=== PATIENT | female | born 1970 | race Caucasian/White ===

== ENCOUNTER 2019-10-23 19:06 | Emergency (ER) | payer SELFPAY ==
[2019-10-23 19:39] VITALS: BP 170/102; PULSE 85; RESP 18; TEMP 36.8; O2SAT 97; BMI 33.9
--- NOTE | 2019-10-23 20:08 | ED_ITS ---
HPI - Extremity Problem General: Chief complaint: Extremity Injury, Upper Stated complaint: wrist pain Time Seen by Provider: 10/23/19 20:01 History of Present Illness: HPI Narrative: Patient is a 48-year-old female comes to the ED with right wrist pain. Patient says that yesterday she fell and caught herself with her right arm. She did not feel any pop and had some mild pain in her right wrist afterwards last night. Says this morning when she woke up the pain had increased and she still has range of motion but increased pain with movement. She has some mild swelling in the wrist and the pain is starting to shoot into the forearm. She has not taken any ibuprofen or Tylenol today to help with pain. Associated symptoms: Deny chest pain, fever(s) or rash Review of Systems Const: Denies: fever(s), chills or fatigue Eyes: Denies: change in vision or eye discomfort ENMT: Denies: throat pain, odynophagia, nasal discharge or nasal congestion Card: Denies: chest pain, palpitations, edema, swelling of feet/ankles, dyspnea on exertion or orthopnea Resp: Denies: dyspnea, productive cough or non-productive cough GI: Denies: abdominal pain, nausea, vomiting, diarrhea, constipation or hematochezia : Denies: flank pain, dysuria or hematuria Musc: Reports: extremity pain (right wrist pain) and extremity swelling (right wrist swelling); Denies: neck pain or back pain Skin/Breast: Denies: rash or new lesions Neuro: Denies: headache(s), numbness in extremities or weakness in extremities PFS ED PFSH: Social History Smoking and tobacco status: current every day smoker Physical Exam Const: COMMON NORMALS: no acute distress, patient oriented x3 and alert GENERAL APPEARANCE: cooperative and comfortable HENMT: COMMON NORMALS: normocephalic HEAD & SCALP: normocephalic MOUTH: Normal oral and palatal mucosa present THROAT: posterior oropharynx normal and uvula midline Eye: COMMON NORMALS: Equal, round and reactive pupils present PUPIL: Yes Equal, round and reactive pupils present Neck/C-Spine: COMMON NORMALS: supple GENERAL: Yes normal visual inspection Resp: COMMON NORMALS: normal respiratory effort, No retractions, No use of accessory muscles and clear to auscultation bilaterally AUSCULTATION: clear to auscultation bilaterally Cardio: COMMON NORMALS: regular rate, regular rhythm, S1 normal heart sound present, S2 normal heart sound present, No gallops present (Cardio), No clicks present (Cardio), No murmurs present (Cardio) and Peripheral pulses 2+ throughout RATE: regular rate RHYTHM: regular rhythm HEART SOUNDS: S1 normal heart sound present and S2 normal heart sound present PERIPHERAL PULSES: Peripheral pulses 2+ throughout GI: COMMON NORMALS: Normal to inspection, nondistended, normoactive bowel sounds present, Soft to palpation, non-tender and no masses PALPATION: Yes Soft to palpation : COMMON NORMALS: Yes no CVA tenderness BLADDER/KIDNEY EXAM: Yes no CVA tenderness Back/Pelvis: COMMON NORMALS: no CVA tenderness Extremity: GENERAL: Yes normal exam except as noted RIGHT UPPER EXTREMITY: Yes wrist Right wrist: Yes inspection (Mild swelling, no visible deformity, erythema or warmth.), Yes palpation (Tender on lateral aspect of wrist.), Yes ROM (Full range of motion but mild pain.) and Yes neurovascular exam (Intact) Neuro: COMMON NORMALS: patient oriented x3 and moves all extremities SENSORIUM/ORIENTATION: Yes alert Skin: COMMON NORMALS: no rashes or lesions noted GENERAL SKIN EXAM: no rashes or lesions noted and dry skin Course Vital Signs: Vital signs: Vital Signs Temperature 98.2 F 10/23/19 19:39 Pulse Rate 72 10/23/19 22:17 Respiratory Rate 18 10/23/19 22:17 Blood Pressure 135/74 10/23/19 22:17 Pulse Oximetry 98 10/23/19 22:17 MDM - Extremity (Nontraumatic) MDM Narrative: Medical decision making narrative: Patient is a 48-year-old female comes to the ED with right wrist pain after fall yesterday. Right wrist x-ray showed no acute fractures. Patient was put in a Velcro wrist splint and diagnosed with wrist sprain and strain. Patient was told to follow-up with PCP in 7 to 10 days reevaluation. Take ibuprofen or Tylenol for pain and apply cold pack to help with symptoms. Patient understood and agreed with plan. Imaging Data^: Xray Ortho: Attestation: I personally reviewed and interpreted this imaging study as follows: My impression: Right wrist x-ray performed?no acute fractures seen. Pending final radiology report. Discharge Plan Discharge Patient Disposition: Home, Self-Care Clinical Impression: Sprain and strain of wrist Condition: Stable Discharge Orders: Discharge Order (Routine); Ordered 10/23/19 Ordered By: Benjamin Kent Referrals: Tomi Kevin APN [Primary Care Provider] - Discharge Diet: Regular Discharge Activity: Increase activity as tolerated Patient Instructions: Wrist Sprain (ED) Activity Restrictions/Additional Instructions: Wear Velcro wrist splint for the next couple days to allow for the wrist to heal and swelling to go down. Remove wrist splint daily and move wrist around to keep wrist range of motion normal. Take ibuprofen to help with pain and inflammation. You can take up to 600 mg 3 times a day of ibuprofen. Apply cold pack on wrist to help with swelling symptoms to. Call your PCP and set up a follow-up appointment with them in the next 7 to 10 days. Discharge Date/Time: 10/23/19 22:19 Coding Level of Care Code ED [employer] for Tapan Fwchristiane Exam Comprehensive
--- NOTE | 2019-10-23 20:37 | XR_ITS ---
WS: [id number] Right wrist, 3 views, 10/23/2019 Clinical Data: fall with wrist pain Comparison: None. Findings: No fractures or dislocations are seen. The carpal bones are intact. There is no soft tissue swelling. The distal radius and ulna are not remarkable. XR/XR wrist RT min 3V* [id number] Impression: Negative right wrist.
[2019-10-23 22:17] VITALS: BP 135/74; PULSE 72; RESP 18; O2SAT 98
== END 2019-10-23 22:19 | disposition home or self-care (01) ==
PROVIDERS: Emergency Provider Physician Assistant; PCP Nurse Practitioner Family
DX: S63.501A Unspecified sprain of right wrist, initial encounter (principal); S66.911A Strain of unspecified muscle, fascia and tendon at wrist and hand level, right hand, initial encounter; W19.XXXA Unspecified fall, initial encounter; F17.210 Nicotine dependence, cigarettes, uncomplicated
CPT/HCPCS: 12345; 29125; 73110; 99281; 99283

== ENCOUNTER → 2023-01-12 18:34 | Outpatient (BNVA) | payer MEDICAID, SELFPAY | PROVIDERS: PCP Nurse Practitioner Family; Visit Provider Registered Nurse Neonatal Intensive Care | DX: R05.9 Cough, unspecified (principal); J01.90 Acute sinusitis, unspecified | CPT/HCPCS: 87426 ==

== ENCOUNTER 2023-01-20 08:03 | Outpatient (CLI) | payer MEDICAID, SELFPAY ==
--- NOTE | 2023-01-20 08:14 | CT_ITS ---
WS: [id number] CT CHEST TECHNIQUE: Noncontrast CT of the chest with coronal and sagittal reformatted images. CLINICAL INFORMATION: LUNG NODULE COMPARISON: None. DLP: 671.[address] scans at [facility] use at least one of these dose optimization techniques: automated e xposure control; mA and/or kV adjustment per patient size (includes targeted exams where dose is matc hed to clinical indication); or iterative reconstruction. FINDINGS: Several noncalcified nodules largest in the LEFT lower lobe measuring 5 to 6 mm. Normal caliber thora cic aorta. No mediastinal or hilar lymphadenopathy. Small esophageal hiatal hernia. Adrenal glands ar e normal. Increased attenuation tiny LEFT renal lesion likely hemorrhagic or proteinaceous cyst measu ring 5 mm. No axillary lymphadenopathy. Mild thoracic kyphosis. IMPRESSION: 1. Several noncalcified nodules mainly subpleural in location the largest measuring 5 to 6 mm LEFT l ower lobe. Recommend 12-month chest CT follow-up. 2. No mediastinal or hilar lymphadenopathy. 3. Small esophageal hernia.
== END 2023-01-20 08:04 | disposition home or self-care (01) ==
PROVIDERS: PCP Family Medicine; Visit Provider Family Medicine
DX: R91.8 Other nonspecific abnormal finding of lung field (principal); K44.9 Diaphragmatic hernia without obstruction or gangrene
CPT/HCPCS: 71250

== ENCOUNTER 2023-01-24 13:47 | Emergency (ER) | payer MEDICAID, SELFPAY ==
[2023-01-24 13:58] VITALS: BP 121/69; PULSE 108; RESP 19; TEMP 36.3; O2SAT 100; BMI 41.5
[2023-01-24 14:40] VITALS: BP 165/98; PULSE 107; O2SAT 100
--- NOTE | 2023-01-24 14:53 | US_ITS ---
WS: [id number] RIGHT UPPER QUADRANT ULTRASOUND HISTORY: RUQ pain, N/V/D COMPARISON: None available. Liver: 20.5 cm in length. Moderately enlarged and mildly dense liver. No mass or bile duct dilatation . Portal Vein: Normal hepatopetal flow with monophasic waveform. Gallbladder: Normally distended gallbladder with no stones or wall thickening. CBD: 0.3 cm Pancreas: Partially obscured. Obscured by bowel gas. Right kidney: 11.3 cm in length. Normal size and echogenicity. No hydronephrosis or mass. Aorta and IVC: Unremarkable abdominal aorta and IVC. No ascites. IMPRESSION: 1. Normal gallbladder. 2. Moderate hepatomegaly with mild hepatic steatosis.
--- NOTE | 2023-01-24 14:54 | W.ED.NAVMDI ---
Documented by User: [email or web address] Mccray 01/24/23 16:39 HPI - Nausea/Vomiting/Diarrhea General: Chief complaint: Nausea/Vomiting/Diarrhea Stated complaint: lower back pain , light headed , n/v Time Seen by Provider: 01/24/23 14:39 Source: patient Mode of arrival: ambulatory Limitations: no limitations History of Present Illness: Patient is a 52-year-old female presents to ED today with complaint of acute on chronic right lower back pain as well as nausea, vomiting, diarrhea. Patient states she has suffered from chronic right lower back pain. She denies any recent injury or trauma but states over the past few days pain has become unbearable. She is not complaining of radicular pain into her lower extremity. She denies numbness, tingling, weakness. She denies saddle anesthesia or bowel or bladder dysfunction. She states about 2 to 3 days ago she began noticing nausea, vomiting, diarrhea. She is not having any bloody emesis or stools. She does not complain of abdominal pain. She denies flank pain or urinary symptoms. She is not running fevers. She states she does have a history of acid reflux that she treats with omeprazole but has not had much issue with this recently. She has not been able to take this medication secondary to vomiting. MD elicited complaint: nausea, vomiting, diarrhea and other (back pain) Onset (ago): day(s) Description of diarrhea: watery Associated nausea: Yes Pain consistency: constant Severity: severe Associated symtoms: Reports nausea; Denies change in vision, chest pain, dysuria, fatigue, headache(s), malaise, palpitations or syncope Review of Systems Const: Denies: fever(s), chills, body aches, fatigue or malaise Eyes: Denies: change in vision or blurry vision Card: Denies: chest pain, palpitations, irregular heart rhythm, lightheadedness, syncope or dyspnea on exertion Resp: Denies: dyspnea, productive cough or pain on inspiration GI: Reports: nausea, vomiting and diarrhea; Denies: abdominal pain, hematemesis, heartburn, hematochezia or melena : Denies: flank pain, difficulty voiding, dysuria, urinary frequency, urinary urgency or urinary hesitancy Musc: Reports: back pain; Denies: neck pain, extremity pain, extremity swelling, joint pain, joint swelling or joint redness Skin/Breast: Denies: rash Neuro: Denies: headache(s), numbness in extremities, weakness in extremities or sensory changes PFSH ED PFSH: Social History Smoking and tobacco status: current every day smoker Physical Exam Const: COMMON NORMALS: patient oriented x3, no limitations and alert GENERAL APPEARANCE: cooperative, in distress (tearful-due to discomfort), appears older than stated age and other (odorous) NUTRITIONAL APPEARANCE: obese morbidly obese ORIENTATION/CONSCIOUSNESS: Yes awake, Yes oriented to person, Yes oriented to place and Yes oriented to time HENMT: COMMON NORMALS: normocephalic and atraumatic HEAD & SCALP: normal to inspection, normocephalic and atraumatic Eye: COMMON NORMALS: no scleral icterus Resp: COMMON NORMALS: normal respiratory effort and clear to auscultation bilaterally AUSCULTATION: clear to auscultation bilaterally Cardio: COMMON NORMALS: regular rhythm RATE: tachycardic RHYTHM: regular rhythm GI: COMMON NORMALS: Normal to inspection, nondistended, normoactive bowel sounds present, Soft to palpation, No hepatosplenomegaly present and no masses INSPECTION: Yes normal to inspection AUSCULTATION: Yes normoactive bowel sounds PALPATION: Yes Soft to palpation, Yes Tenderness to palpation present (GI) (RUQ), No Guarding due to palpation present (GI), No Rigid due to palpation and Yes No hepatosplenomegaly present : COMMON NORMALS: Yes no CVA tenderness BLADDER/KIDNEY EXAM: Yes no CVA tenderness Back/Pelvis: COMMON NORMALS: no CVA tenderness, thoracic and lumbar spine normal to inspection and no thoracic nor lumbar tenderness THORACIC SPINE/UPPER BACK: No thoracic spinal tenderness, No paraspinal muscle tenderness and No paraspinal muscle spasm LUMBAR SPINE/LOWER BACK: No lumbar spinal tenderness, Yes paraspinal muscle tenderness Lumbar paraspinal muscle tenderness: right and No paraspinal muscle spasm PELVIS: Yes buttocks normal and Yes sciatic notch tenderness on the right SACRUM: no tenderness COCCYX: no tenderness Extremity: COMMON NORMALS: normal to inspection and full ROM GENERAL: Yes normal exam except as noted Neuro: COMMON NORMALS: patient oriented x3, moves all extremities, no focal motor deficits and no sensory deficits noted SENSORIUM/ORIENTATION: Yes alert, Yes oriented to person, Yes oriented to place and Yes oriented to time MOTOR EXAM: 5/5 motor strength present throughout Skin: COMMON NORMALS: no rashes or lesions noted GENERAL SKIN EXAM: no rashes or lesions noted Course Reevaluation(s): Reevaluation #1: Patient states she feels much better after meds given here. We are still awaiting urine specimen. Time: 16:30 Vital Signs: Vital signs: Vital Signs Temperature 97.4 F L 01/24/23 13:58 Pulse Rate 107 H 01/24/23 14:40 Respiratory Rate 19 H 01/24/23 13:58 Blood Pressure 165/98 01/24/23 14:40 Pulse Oximetry 100 01/24/23 14:40 Oxygen Delivery Me thod Room Air 01/24/23 13:58 MDM - Nausea/Vomiting/Diarrhea Lab Data 01/24/23 15:00 01/24/23 15:00 Laboratory Results WBC 12.15 10^3/uL (3.29-11.43) H 01/24/23 15:00 RBC 6.03 10^6/uL (3.85-5.65) H 01/24/23 15:00 Hgb 16.80 g/dL (11.27-16.99) 01/24/23 15:00 Hct 52.0 % (36-47) H 01/24/23 15:00 MCV 86.2 fl (85-98) 01/24/23 15:00 MCH 27.9 pg (27-33) 01/24/23 15:00 MCHC 32.3 g/dL (30-55) 01/24/23 15:00 RDW 14.6 % (12.1-15.1) 01/24/23 15:00 Plt Count 307 10^3/cmm (157-399) 01/24/23 15:00 MPV 11.8 fL (7.4-10.4) H 01/24/23 15:00 Neut % (Auto) 70.3 % 01/24/23 15:00 Lymph % (Auto) 21.6 % 01/24/23 15:00 Starke % (Auto) 4.2 % 01/24/23 15:00 Eos % (Auto) 2.8 % 01/24/23 15:00 Baso % (Auto) 0.6 % 01/24/23 15:00 Neut # (Auto) 8.54 10^3/uL (1.8-7.7) H 01/24/23 15:00 Lymph # (Auto) 2.6 10^3/uL (0.8-4.8) 01/24/23 15:00 Starke # (Auto) 0.5 10^3/uL (0.2-0.9) 01/24/23 15:00 Eos # (Auto) 0.3 10^3/uL (0.0-0.8) 01/24/23 15:00 Baso # (Auto) 0.1 10^3/uL (0.0-0.1) 01/24/23 15:00 Nucleated RBC % (auto) 0 % 01/24/23 15:00 Nucleated RBCs # 0.0 /100WBC 01/24/23 15:00 Sodium 136 mmol/L (136-145) 01/24/23 15:00 Potassium 4.2 mmol/L (3.5-5.1) 01/24/23 15:00 Chloride 97 mmol/L (98-107) L 01/24/23 15:00 Carbon Dioxide 29 mmol/L (22-29) 01/24/23 15:00 Anion Gap 14.2 (5-19) 01/24/23 15:00 BUN 23 mg/dL (6-20) H 01/24/23 15:00 Creatinine 1.2 mg/dL (0.5-0.9) H 01/24/23 15:00 GFR Calculation 47.2 mL/min (90-130) L 01/24/23 15:00 Glucose 139 mg/dL (65-115) H 01/24/23 15:00 Calculated Osmolality 288 mOsm/kg (285-295) 01/24/23 15:00 Calcium 10.2 mg/dL (8.5-10.5) 01/24/23 15:00 Total Bilirubin 0.5 mg/dL (0.15-1.2) 01/24/23 15:00 AST 11 U/L (0-32) 01/24/23 15:00 ALT 11 U/L (0-33) 01/24/23 15:00 Alkaline Phosphatase 114 U/L (35-105) H 01/24/23 15:00 Total Protein 7.5 g/dL (6.6-8.7) 01/24/23 15:00 Albumin 4.5 g/dL (3.5-5.2) 01/24/23 15:00 Globulin 3.0 g/dL (1.3-4.6) 01/24/23 15:00 Lipase 47 U/L (13-60) 01/24/23 15:00 Urine Color Yellow (Yellow) 01/24/23 17:09 Urine Appearance Cloudy (CLEAR) A 01/24/23 17:09 Urine pH 5 (5-7) 01/24/23 17:09 Ur Specific [place] 1.025 (1.005-1.030) 01/24/23 17:09 Urine Protein 1+ (Negative) H 01/24/23 17:09 Urine Glucose (UA) Norm (Normal) 01/24/23 17:09 Urine Ketones 1+ (Negative) H 01/24/23 17:09 Urine Blood 2+ (Negative) H 01/24/23 17:09 Urine Nitrate Negative (Negative) 01/24/23 17:09 Urine Bilirubin 1+ (Negative) H 01/24/23 17:09 Urine Urobilinogen Norm mg/dL (Negative) 01/24/23 17:09 Ur Leukocyte Esterase 2+ (Negative) H 01/24/23 17:09 Urine RBC 10-15 /hpf (0-2) H 01/24/23 17:09 Urine WBC 40-55 /hpf (0-5) H 01/24/23 17:09 Ur Squamous Epith Cells 5-10 /hpf (0-5) H 01/24/23 17:09 Amorphous Sediment 2+ /hpf 01/24/23 17:09 Urine Bacteria 1+ /hpf (NONE) H 01/24/23 17:09 Hyaline Casts 5-10 /lpf H 01/24/23 17:09 Fine Granular Casts 0-4 /lpf H 01/24/23 17:09 Urine Mucus 2+ /hpf 01/24/23 17:09 Discharge Plan Discharge Patient Disposition: Home Clinical Impression: Pyelonephritis Condition: Stable Prescriptions: New cefdinir 300 mg capsule 300 mg PO BID 10 Days Qty: 20 0RF hydrocodone-acetaminophen 5-325 mg tablet 1 tab PO Q8H PRN (Reason: pain (scale score 7-10)) Qty: 7 0RF No Action lisinopril 20 mg tablet 20 mg PO DAILY hydrochlorothiazide 50 mg tablet 50 mg PO DAILY omeprazole 40 mg capsule,delayed release(DR/EC) 40 mg PO DAILY atorvastatin 10 mg tablet 10 mg PO DAILY doxycycline hyclate 100 mg tablet 100 mg PO BID 7 Days Qty: 14 0RF prednisone 20 mg tablet 20 mg PO BID 5 Days Qty: 10 0RF albuterol sulfate [Ventolin HFA] 90 mcg/actuation HFA aerosol inhaler 2 puff inhalation Q6H PRN (Reason: shortness of breath or wheezing) Qty: 8.5 0RF Discharge Orders: Discharge ED (Routine); Ordered 01/24/23 Ordered By: Yoshi Elder Referrals: Tanner Barr MD [Primary Care Provider] - Discharge Diet: Usual diet Discharge Activity: Increase activity as tolerated Patient Instructions: Kidney Infection (ED), Opioid Safety Activity Restrictions/Additional Instructions: Drink plenty of water. Continue with antibiotics cefdinir 300 mg 2 times daily for the next 10 days. Use hydrocodone as needed for severe pain. You can use acetaminophen and/or ibuprofen to help control pain. Follow-up with primary care in 3 to 5 days for recheck. Return to ED for worsening symptoms such as inability to hold fluids down, high fever greater than 100.4, or uncontrolled pain. Sign Out Sign Out Data: Patient Sign Out occurred on 01/24/23 at 17:05. Patient's care was discussed, and care was transferred from to Yoshi Elder. Coding Level of Care Code ED Licensed Audiologist for Chg Fwd Documented by User: [email or web address] Mathew 01/24/23 18:20 HPI - Nausea/Vomiting/Diarrhea General: Chief complaint: Nausea/Vomiting/Diarrhea Stated complaint: lower back pain , light headed , n/v Time Seen by Provider: 01/24/23 14:39 PFSH ED PFSH: Social History Smoking and tobacco status: current every day smoker Course Vital Signs: Vital signs: Vital Signs Temperature 97.4 F L 01/24/23 13:58 Pulse Rate 107 H 01/24/23 14:40 Respiratory Rate 19 H 01/24/23 13:58 Blood Pressure 165/98 01/24/23 14:40 Pulse Oximetry 100 01/24/23 14:40 Oxygen Delivery Me thod Room Air 01/24/23 13:58 MDM - Nausea/Vomiting/Diarrhea Medical Decision Making 52-year-old female comes in today with complaints of right flank pain which she first attributed to her chronic back pain. On exam patient appeared in severe pain. Patient was medicated with fluids and morphine. I received this patient from Anita Marinelli PA-C at the end of her shift. On my exam patient was feeling better and was managing fluids. Abdomen is soft and nontender. Patient has some muscle tenderness in the right flank. Differential diagnosis includes musculoskeletal pain, pyelonephritis, renal calculi, gallbladder disease. Ultrasound gallbladder was unremarkable. CBC noted a 12,000 white count, creatinine 1.2, urinalysis showed large number of white blood cells 40-55 under high-powered microscope, positive leukocyte esterases and hyaline casts. Patient was given 1 g of Rocephin for treatment of pyelonephritis. Patient was encouraged to drink plenty of water and fluids and continue on antibiotics. Recommend follow-up with primary care in 1 week for recheck. Return to ED for worsening symptoms. Patient reported understanding and agreed to plan. Lab Data 01/24/23 15:00 01/24/23 15:00 Laboratory Results WBC 12.15 10^3/uL (3.29-11.43) H 01/24/23 15:00 RBC 6.03 10^6/uL (3.85-5.65) H 01/24/23 15:00 Hgb 16.80 g/dL (11.27-16.99) 01/24/23 15:00 Hct 52.0 % (36-47) H 01/24/23 15:00 MCV 86.2 fl (85-98) 01/24/23 15:00 MCH 27.9 pg (27-33) 01/24/23 15:00 MCHC 32.3 g/dL (30-55) 01/24/23 15:00 RDW 14.6 % (12.1-15.1) 01/24/23 15:00 Plt Count 307 10^3/cmm (157-399) 01/24/23 15:00 MPV 11.8 fL (7.4-10.4) H 01/24/23 15:00 Neut % (Auto) 70.3 % 01/24/23 15:00 Lymph % (Auto) 21.6 % 01/24/23 15:00 Starke % (Auto) 4.2 % 01/24/23 15:00 Eos % (Auto) 2.8 % 01/24/23 15:00 Baso % (Auto) 0.6 % 01/24/23 15:00 Neut # (Auto) 8.54 10^3/uL (1.8-7.7) H 01/24/23 15:00 Lymph # (Auto) 2.6 10^3/uL (0.8-4.8) 01/24/23 15:00 Starke # (Auto) 0.5 10^3/uL (0.2-0.9) 01/24/23 15:00 Eos # (Auto) 0.3 10^3/uL (0.0-0.8) 01/24/23 15:00 Baso # (Auto) 0.1 10^3/uL (0.0-0.1) 01/24/23 15:00 Nucleated RBC % (auto) 0 % 01/24/23 15:00 Nucleated RBCs # 0.0 /100WBC 01/24/23 15:00 Sodium 136 mmol/L (136-145) 01/24/23 15:00 Potassium 4.2 mmol/L (3.5-5.1) 01/24/23 15:00 Chloride 97 mmol/L (98-107) L 01/24/23 15:00 Carbon Dioxide 29 mmol/L (22-29) 01/24/23 15:00 Anion Gap 14.2 (5-19) 01/24/23 15:00 BUN 23 mg/dL (6-20) H 01/24/23 15:00 Creatinine 1.2 mg/dL (0.5-0.9) H 01/24/23 15:00 GFR Calculation 47.2 mL/min (90-130) L 01/24/23 15:00 Glucose 139 mg/dL (65-115) H 01/24/23 15:00 Calculated Osmolality 288 mOsm/kg (285-295) 01/24/23 15:00 Calcium 10.2 mg/dL (8.5-10.5) 01/24/23 15:00 Total Bilirubin 0.5 mg/dL (0.15-1.2) 01/24/23 15:00 AST 11 U/L (0-32) 01/24/23 15:00 ALT 11 U/L (0-33) 01/24/23 15:00 Alkaline Phosphatase 114 U/L (35-105) H 01/24/23 15:00 Total Protein 7.5 g/dL (6.6-8.7) 01/24/23 15:00 Albumin 4.5 g/dL (3.5-5.2) 01/24/23 15:00 Globulin 3.0 g/dL (1.3-4.6) 01/24/23 15:00 Lipase 47 U/L (13-60) 01/24/23 15:00 Urine Color Yellow (Yellow) 01/24/23 17:09 Urine Appearance Cloudy (CLEAR) A 01/24/23 17:09 Urine pH 5 (5-7) 01/24/23 17:09 Ur Specific [place] 1.025 (1.005-1.030) 01/24/23 17:09 Urine Protein 1+ (Negative) H 01/24/23 17:09 Urine Glucose (UA) Norm (Normal) 01/24/23 17:09 Urine Ketones 1+ (Negative) H 01/24/23 17:09 Urine Blood 2+ (Negative) H 01/24/23 17:09 Urine Nitrate Negative (Negative) 01/24/23 17:09 Urine Bilirubin 1+ (Negative) H 01/24/23 17:09 Urine Urobilinogen Norm mg/dL (Negative) 01/24/23 17:09 Ur Leukocyte Esterase 2+ (Negative) H 01/24/23 17:09 Urine RBC 10-15 /hpf (0-2) H 01/24/23 17:09 Urine WBC 40-55 /hpf (0-5) H 01/24/23 17:09 Ur Squamous Epith Cells 5-10 /hpf (0-5) H 01/24/23 17:09 Amorphous Sediment 2+ /hpf 01/24/23 17:09 Urine Bacteria 1+ /hpf (NONE) H 01/24/23 17:09 Hyaline Casts 5-10 /lpf H 01/24/23 17:09 Fine Granular Casts 0-4 /lpf H 01/24/23 17:09 Urine Mucus 2+ /hpf 01/24/23 17:09 Discharge Plan Discharge Patient Disposition: Home Clinical Impression: Pyelonephritis Condition: Stable Prescriptions: New cefdinir 300 mg capsule 300 mg PO BID 10 Days Qty: 20 0RF hydrocodone-acetaminophen 5-325 mg tablet 1 tab PO Q8H PRN (Reason: pain (scale score 7-10)) Qty: 7 0RF No Action lisinopril 20 mg tablet 20 mg PO DAILY hydrochlorothiazide 50 mg tablet 50 mg PO DAILY omeprazole 40 mg capsule,delayed release(DR/EC) 40 mg PO DAILY atorvastatin 10 mg tablet 10 mg PO DAILY doxycycline hyclate 100 mg tablet 100 mg PO BID 7 Days Qty: 14 0RF prednisone 20 mg tablet 20 mg PO BID 5 Days Qty: 10 0RF albuterol sulfate [Ventolin HFA] 90 mcg/actuation HFA aerosol inhaler 2 puff inhalation Q6H PRN (Reason: shortness of breath or wheezing) Qty: 8.5 0RF Discharge Orders: Discharge ED (Routine); Ordered 01/24/23 Ordered By: Yoshi Elder Referrals: Tanner Barr MD [Primary Care Provider] - Discharge Diet: Usual diet Discharge Activity: Increase activity as tolerated Patient Instructions: Kidney Infection (ED), Opioid Safety Activity Restrictions/Additional Instructions: Drink plenty of water. Continue with antibiotics cefdinir 300 mg 2 times daily for the next 10 days. Use hydrocodone as needed for severe pain. You can use acetaminophen and/or ibuprofen to help control pain. Follow-up with primary care in 3 to 5 days for recheck. Return to ED for worsening symptoms such as inability to hold fluids down, high fever greater than 100.4, or uncontrolled pain. Sign Out Sign Out Data: Patient Sign Out occurred on 01/24/23 at 17:05. Patient's care was discussed, and care was transferred from to Yoshi Elder. Coding Level of Care Code ED Licensed Audiologist for Tapan Giordano
[2023-01-24 15:07] LABS: Basophils # 0.1 10^3/uL (0.0-0.1); Basophils % 0.6 %; Eosinophils # 0.3 10^3/uL (0.0-0.8); Eosinophils % 2.8 %; Lymphocytes # 2.6 10^3/uL (0.8-4.8); Lymphocytes % 21.6 %; Mean Corpuscular HGB Conc 32.3 g/dL (30-55); Mean Corpuscular Hemoglobin 27.9 pg (27-33); Mean Corpuscular Volume 86.2 fl (85-98); Mean Platelet Volume 11.8 fL (7.4-10.4); Monocytes # 0.5 10^3/uL (0.2-0.9); Monocytes % 4.2 %; Neutrophils # 8.54 10^3/uL (1.8-7.7); Neutrophils % 70.3 %; Nucleated Red Blood Cells % 0 %; Platelet Count 307 10^3/cmm (157-399); Red Blood Count 6.03 10^6/uL (3.85-5.65); Red Cell Distribution Width 14.6 % (12.1-15.1); White Blood Count 12.15 10^3/uL (3.29-11.43)
[2023-01-24 15:25] LABS: Alanine Aminotransferase 11 U/L (0-33); Albumin Level 4.5 g/dL (3.5-5.2); Alkaline Phosphatase 114 U/L (35-105); Anion Gap 14.2 (5-19); Aspartate Amino Transferase 11 U/L (0-32); Blood Urea Nitrogen 23 mg/dL (6-20); Calcium 10.2 mg/dL (8.5-10.5); Carbon Dioxide 29 mmol/L (22-29); Chloride 97 mmol/L (98-107); Glomerular Filtration Rate 47.2 mL/min (90-130); Glucose 139 mg/dL (65-115); Lipase 47 U/L (13-60); Osmolality Calculated 288 mOsm/kg (285-295); Potassium 4.2 mmol/L (3.5-5.1); Sodium 136 mmol/L (136-145); Total Bilirubin 0.5 mg/dL (0.15-1.2); Total Protein 7.5 g/dL (6.6-8.7)
[2023-01-24] MEDS: sodium chloride 0.9% 1,000 ML 999 ML IV (15:49)
[2023-01-24] MEDS: morphine 4 mg/mL SDV 1 mL IVP (15:49)
[2023-01-24] MEDS: ondansetron 2 mg/ML SDV 2 mL 4 MG IVP (15:49)
[2023-01-24 17:33] LABS: Add Urine Microscopic? YES; Bilirubin Urine 1+ (Negative); Blood Urine 2+ (Negative); Glucose Urine UA Norm (Normal); Ketones Urine 1+ (Negative); Leukocyte Esterase Urine 2+ (Negative); Nitrate Urine Negative (Negative); Protein Urine 1+ (Negative); Specific Gravity, Urine 1.025 (1.005-1.030); Urine Appearance Cloudy (CLEAR); Urine Color Yellow (Yellow); Urobilinogen Urine Norm (Negative); pH Urine 5 (5-7)
[2023-01-24 17:34] LABS: Bacteria Urine 1+ /hpf; Mucus Urine 2+ /hpf; WBC Urine 40-55 /hpf (0-5)
[2023-01-24 17:35] LABS: Amorphous Sediment Urine 2+ /hpf; Fine Granular Casts Urine 0-4 /lpf
[2023-01-24 17:37] LABS: Add Urine Culture? Yes
[2023-01-24] MEDS: cefTRIAXone 1,000 MG in sodium chloride 0.9% (plus) 50 ML 100 MG IV (18:26)
[2023-01-24 18:47] VITALS: BP 136/81; PULSE 80; O2SAT 99
== END 2023-01-24 18:49 | disposition home or self-care (01) ==
PROVIDERS: Physician Assistant; Emergency Provider Nurse Practitioner Family; PCP Family Medicine
DX: N12 Tubulo-interstitial nephritis, not specified as acute or chronic (principal); F17.210 Nicotine dependence, cigarettes, uncomplicated
CPT/HCPCS: 36415; 76705; 80053; 81001; 83690; 85025; 87086; 96361; 96365; 96375; 99285; J0696; J2270; J2405; J7030

== ENCOUNTER 2024-07-30 14:45 | Outpatient (CLI) | payer BC, MEDICAID, SELFPAY ==
--- NOTE | 2024-07-30 | MM_ITS ---
WS: [id number] BILATERAL 3D TOMOSYNTHESIS DIGITAL SCREENING MAMMOGRAPHY WITH CAD CLINICAL INFORMATION: ANNUAL SCREENING HISTORY: Screening mammogram. No current complaints. COMPARISON: New baseline TECHNIQUE: Bilateral CC and MLO views. FINDINGS: Scattered fibroglandular densities bilaterally. No suspicious focal mass, asymmetry, calcifications, or architectural distortion. No evidence of malignancy. Incidental punctate masses or calcifications. MM/MM scr BI tomosynthesis [id number] IMPRESSION: DENSITY: There are scattered areas of fibroglandular density. BI-RADS: 2 - Benign. FOLLOW UP: 1 Year Follow-up Recommend return to annual screening mammography.
== END 2024-07-30 14:46 | disposition home or self-care (01) ==
LOC: RAD 14:47
PROVIDERS: PCP Family Medicine; Visit Provider Family Medicine
DX: Z12.31 Encounter for screening mammogram for malignant neoplasm of breast (principal); R92.323 Mammographic fibroglandular density, bilateral breasts; R92.1 Mammographic calcification found on diagnostic imaging of breast
CPT/HCPCS: 77063; 77067

== ENCOUNTER 2024-08-12 13:49 | Outpatient (CLI) | payer BC, MEDICAID, SELFPAY ==
--- NOTE | 2024-08-12 13:56 | CT_ITS ---
WS: [id number] CT chest wo con [id number] HISTORY: LUNG NODULE TECHNIQUE: Axial imaging performed through the thorax. Coronal and sagittal reformats are submitted. All CT scans at [facility] use at least one of these dose optimization techniques: automated exposure control; mA and/or kV adjustment per patient size (includes targeted exams where dose is matched to clinical indication); or iterative reconstruction. CONTRAST: None DLP: 654.18 mGy.cm COMPARISON: 01/20/2023 Lungs and central airway: Moderate pulmonary hyperexpansion. Numerous small pulmonary nodules are identified. Some of these are micronodules. The largest nodule 5 mm at the LEFT lung base. No new or increasing size of any nodule. No endobronchial lesions. No pneumonia. Pleura: Normal. No pleural effusion. Heart and pericardium: Normal size heart with no pericardial effusion. Mediastinum and ayaan: No mediastinum or hilar adenopathy. Vessels: Normal size aortic and pulmonary artery. No coronary artery calcifications. Chest wall and lower neck: No soft tissue masses. Upper abdomen: Moderate size hiatal hernia. No adrenal mass. Osseous structures: Mild thoracic kyphosis. CT/CT chest wo con [id number] IMPRESSION: 1. No new or enlarging pulmonary mass or nodule. No mediastinal or hilar adeno will. Recommend return to annual lung screening. 2. No mediastinal or hilar adenopathy.
== END 2024-08-12 13:50 | disposition home or self-care (01) ==
LOC: RAD 13:51
PROVIDERS: PCP Family Medicine; Visit Provider Family Medicine
DX: R91.8 Other nonspecific abnormal finding of lung field (principal); Z87.891 Personal history of nicotine dependence; K44.9 Diaphragmatic hernia without obstruction or gangrene; M40.294 Other kyphosis, thoracic region
CPT/HCPCS: 71250

== ENCOUNTER → 2024-08-27 13:25 | Outpatient (BNVA) | payer BC, MEDICAID, SELFPAY | PROVIDERS: PCP Family Medicine; Visit Provider Emergency Medicine | DX: M79.631 Pain in right forearm (principal); M79.89 Other specified soft tissue disorders | CPT/HCPCS: 73090 ==

== ENCOUNTER 2024-10-10 06:02 | Day surgery (SDC) | payer BC, MEDICAID, SELFPAY ==
--- NOTE | 2024-10-10 05:56 | W.PM.OPSFHP ---
Same Day Surgery H&P Indication for Procedure/HPI DATE OF PROCEDURE: October 10, 2024 CHIEF COMPLAINT/INDICATIONFOR SURGICAL PROCEDURE: need for screening colonoscopy and GERD PREOP DIAGNOSIS: need for screening colonoscopy and GERD PLANNED PROCEDURE: Operation Date: 10/10/24 07:40 Proposed Procedures p EGD 53055, 18045, G0121, K21.9, Z12.11(Not Applicable) - Sami Herbert MD s Colonoscopy(Not Applicable) - Sami Herbert MD Medications/Allergies* Home Medications ?Medication ?Instructions ?Recorded ?Confirmed ?Type hydrochlorothiazide 50 mg tablet 50 mg PO DAILY 01/12/23 10/08/24 History omeprazole 40 mg capsule,delayed 40 mg PO DAILY 01/12/23 10/08/24 History release ibuprofen 600 mg tablet 600 mg PO PRN PRN Pain 05/23/23 10/08/24 History atorvastatin 10 mg tablet 20 mg PO DAILY 08/13/24 10/08/24 History cetirizine 10 mg tablet (Zyrtec) 10 mg PO DAILY PRN Allergic 08/13/24 10/08/24 History Symptoms estradiol 0.025 mg/24 hr weekly 1 patch topical .WEEKLY 09/02/24 10/08/24 History transdermal patch Allergies/Adverse Reactions Allergy/AdvReac Type Severity Reaction Status Date / Time codeine AdvReac ADR-Cramping Verified 10/08/24 08:18 of the Muscles fluticasone (From Advair AdvReac ADR-Vomitin Verified 10/08/24 08:18 Diskus) g levofloxacin (From Levaquin) AdvReac ADR-Vomitin Verified 10/08/24 08:18 g salmeterol (From Advair AdvReac ADR-Vomitin Verified 10/08/24 08:18 Diskus) g Pertinent History/Comorbid Conditions* Social History Smoking and tobacco/nicotine status: current every day tobacco/nicotine user Pertinent Exam Findings alert, oriented x 3, clear to auscultation bilaterally and regular rate & rhythm Recommendations Surgery/Procedure today Coding Level of Care Code Acute Code for Chg Fwd
[2024-10-10 06:24] VITALS: BP 142/120; PULSE 84; RESP 18; TEMP 36.2; O2SAT 95; BMI 40.7
[2024-10-10] MEDS: sodium chloride 0.9% 1,000 ML 15 ML IV (06:29)
--- NOTE | 2024-10-10 06:53 | ANES.PREANE2 ---
Pre-Anesthetic Assessment Height/Weight: Height 1.65 m Weight 111.13 kg Temp Pulse Resp BP Pulse Ox O2 Del Method 97.2 F L 84 18 142/120 95 Room Air 10/10/24 06:24 10/10/24 06:24 10/10/24 06:24 10/10/24 06:24 10/10/24 06:24 10/10/24 06:24 Preop Diagnosis: need for screening colonoscopy and GERD Operation Date: 10/10/24 07:40 Proposed Procedures p EGD 19556, 25863, G0121, K21.9, Z12.11(Not Applicable) - Sami Herbert MD s Colonoscopy(Not Applicable) - Sami Herbert MD Familial anesthetic complications: none Was Beta Ruth taken within 24 hours: N/A Was Clonidine taken within 24 hours: N/A Last intake: Intake Last Liquid Date 10/09/24 Last Liquid Time 23:30 Last Solid Date 10/06/24 Last Solid Time 22:00 Social No alcohol and No tobacco Marijuana use daily Exam alert, oriented x 3, clear to auscultation bilaterally and regular rate & rhythm Airway Submandibular: within normal limits Cervical ROM: within normal limits Mallampati: Class II Dentition: false History/ROS No significant history except as noted and No significant complaints Pulmonary Asthma, Chronic Obstructive Pulmonary Disease and Exertional Dyspnea CV/HEM Hypertension None reported Hepatic None reported GI Gastroesophageal Reflux Disease Metabolic Morbid Obesity Musc/skel Lower Back Pain Neuropsych None reported Anesthetic Plan ASA status: 3 Anesthesia: MAC Risk of > 500 ml blood loss (7ml/kg in children): No Medications/Allergies Home Medications ?Medication ?Instructions ?Recorded ?Confirmed ?Last Taken ?Type albuterol sulfate 90 mcg/actuation 2 puff inhalation Q6H PRN 01/12/23 10/08/24 Unknown Rx aerosol inhaler (Ventolin HFA) shortness of breath or wheezing #8.5 grams hydrochlorothiazide 50 mg tablet 50 mg PO DAILY 01/12/23 10/08/24 10/08/24 History omeprazole 40 mg capsule,delayed 40 mg PO DAILY 01/12/23 10/08/24 10/08/24 History release ibuprofen 600 mg tablet 600 mg PO PRN PRN Pain 05/23/23 10/08/24 Unknown History atorvastatin 10 mg tablet 20 mg PO DAILY 08/13/24 10/08/24 10/08/24 History cetirizine 10 mg tablet (Zyrtec) 10 mg PO DAILY PRN Allergic 08/13/24 10/08/24 10/08/24 History Symptoms promethazine 25 mg tablet 25 mg PO TID PRN nausea and 08/13/24 10/08/24 Unknown Rx vomiting 1 day #9 tabs estradiol 0.025 mg/24 hr weekly 1 patch topical .WEEKLY 09/02/24 10/08/24 10/07/24 History transdermal patch Allergies Allergy/AdvReac Type Severity Reaction Status Date / Time codeine AdvReac ADR-Cramping Verified 10/08/24 08:18 of the Muscles fluticasone (From Advair AdvReac ADR-Vomitin Verified 10/08/24 08:18 Diskus) g levofloxacin (From Levaquin) AdvReac ADR-Vomitin Verified 10/08/24 08:18 g salmeterol (From Advair AdvReac ADR-Vomitin Verified 10/08/24 08:18 Diskus) g Current Medications Generic Name Dose Route Start Last Admin Trade Name Freq PRN Reason Stop Dose Admin Sodium Chloride 1,000 mls @ 15 mls/hr 10/10/24 06:13 10/10/24 06:29 Sodium Chloride 0.9% IV 10/11/24 06:12 15 mls/hr .Q24H PRN Administration COLONOSCOPY FLUIDS PFSH Anesthesia Social History Smoking and tobacco/nicotine status: current every day tobacco/nicotine user
[2024-10-10 08:15] VITALS: BP 130/74; PULSE 78; RESP 18; TEMP 36.2; O2SAT 97
[2024-10-10 08:22] VITALS: BP 131/81; PULSE 72; RESP 18; O2SAT 99
--- NOTE | 2024-10-10 08:40 | ANE.PACU2 ---
Inpatient post-anesthesia follow up: Airway intact: Yes Vital signs: Temperature 97.2 F Pulse Rate 72 Respiratory Rate 18 Blood Pressure 131/81 Pulse Oximetry 99 Oxygen Delivery Me thod Room Air Oxygen Flow Rate Fraction of Inspir ed Oxygen Hydration adequate: Yes Nausea and vomiting: No Pain level: 1 Mental status: Baseline
== END 2024-10-10 08:43 | disposition home or self-care (01) ==
PROVIDERS: PCP Family Medicine; Visit Provider Surgery
PROC: 0DJ08ZZ Inspection of Upper Intestinal Tract, Via Natural or Artificial Opening Endoscopic (ICD-10-PCS; principal; 2024-10-10 07:40)
PROC: 0DJD8ZZ Inspection of Lower Intestinal Tract, Via Natural or Artificial Opening Endoscopic (ICD-10-PCS; CPT 45378; 2024-10-10 07:40)
DX: Z12.11 Encounter for screening for malignant neoplasm of colon (principal); K29.50 Unspecified chronic gastritis without bleeding; K62.1 Rectal polyp; K64.8 Other hemorrhoids; K44.9 Diaphragmatic hernia without obstruction or gangrene; J44.9 Chronic obstructive pulmonary disease, unspecified; K64.4 Residual hemorrhoidal skin tags; Z79.899 Other long term (current) drug therapy; Z88.5 Allergy status to narcotic agent; Z88.8 Allergy status to other drugs, medicaments and biological substances; F17.200 Nicotine dependence, unspecified, uncomplicated; E66.01 Morbid (severe) obesity due to excess calories; Z68.41 Body mass index [BMI] 40.0-44.9, adult; K21.9 Gastro-esophageal reflux disease without esophagitis
CPT/HCPCS: 43239; 45385; 88305; 88342; J2704; J7030; J9999